=== PATIENT | female | born 1950 | race Caucasian/White ===

== ENCOUNTER 2016-03-19 10:10 | Inpatient (IN) | payer OTHER, MEDICARE ==
[~2016-03-19] VITALS: Ht 170.2 cm; Wt 57.2 kg
[2016-03-19] MEDS ORDERED: IV NS 0.9% 1,000 ML BAG IV ONE ×2 (11:00→12:00)
[2016-03-19] MEDS ORDERED: IV SET PRIMARY 1 EA INFUS.SET MC ONE (11:09)
[2016-03-19] MEDS ORDERED: IV NS 0.9% 1,000 ML ONE ×2 (11:09→12:16)
[2016-03-19 11:21] LABS: BASOPHILS # (AUTO) 1.4 /CMM (0.0-0.2); BASOPHILS % (AUTO) 4.9 % (0.0-2.0); DIFF TOTAL % 100 %; HEMATOCRIT 50 % (33-45); HEMOGLOBIN 16.2 g/dL (11.5-14.8); LYMPHOCYTES # (AUTO) 1.1 /CMM (0.8-4.8); LYMPHOCYTES % (AUTO) 3.8 % (20.0-44.0); MEAN CORPUSCULAR HEMOGLOBIN 28 PG (26.0-33.0); MEAN CORPUSCULAR HGB CONC 33 g/dl (31.0-36.0); MEAN CORPUSCULAR VOLUME 87 fL (82-100); MONOCYTES # (AUTO) 0.9 /CMM (0.1-1.30); NEUTROPHILS # (AUTO) 25.9 /CMM (1.8-8.9); NEUTROPHILS % (AUTO) 88.3 % (43.0-81.0); PLATELET COUNT (AUTO) 749 /CMM (150-450); RED BLOOD CELL COUNT(AUTO) 5.74 MIL/uL (4.0-5.2); WHITE BLOOD COUNT (AUTO) 29.3 K/uL (4.3-11.0)
[2016-03-19 11:30] LABS: ANION GAP 24 (5-14); CALCIUM, SERUM 8.8 mg/dL (8.5-10.1); CARBON DIOXIDE 19 mmol/L (21-32); CHLORIDE 94 mmol/L (98-107); CREATININE 2.6 mg/dL (0.6-1.3); GFR 18 mL/min (>60); GLUCOSE 129 mg/dL (74-106); POTASSIUM 4.5 mmol/L (3.5-5.1); SODIUM SERUM 133 mmol/L (136-145); UREA NITROGEN, BLOOD 38 mg/dL (7-18)
[2016-03-19 11:33] LABS: INR 1.12 (0.87-1.13); PROTHROMBIN TIME 11.8 SECS (9.5-12.7)
[2016-03-19 11:36] LABS: ACETAMINOPHEN 0 ug/ml (10-30); ALANINE AMINOTRANSFERASE 131 U/L (12-78); ALBUMIN 2.9 g/dL (3.4-5.0); ASPARTATE AMINOTRANSFERASE 492 U/L (15-37); BILIRUBIN,DIRECT 0.1 mg/dL (0.0-0.2); BILIRUBIN,TOTAL 0.5 mg/dL (0.2-1.0); INDIRECT BILIRUBIN 0.4 mg/dL (0.0-1.1); SALICYLATE 2.9 mg/dL (2.8-20.0); TOTAL PROTEIN, SERUM 8.9 g/dL (6.4-8.2)
[2016-03-19 11:38] LABS: TROPONIN I 0.292 ng/mL (0.00-0.056)
[2016-03-19 11:46] LABS: THYROID STIMULATING HORMONE 0.168 uIU/mL (0.358-3.74)
[2016-03-19 11:49] LABS: LACTIC ACID 2.1 mmol/L (0.4-2.0)
[2016-03-19 11:58] LABS: BAND % (MANUAL) 13 % (0.0-5.0); LYMPHOCYTES % (MANUAL) 8 % (16-48)
[2016-03-19 11:59] LABS: PLATELET ESTIMATE INCREASED
[2016-03-19] MEDS ORDERED: VANCOMYCIN 1 GM in IV D5W 250 ML IV ONE (12:00)
[2016-03-19] MEDS ORDERED: PIPERACILLIN /TAZOBACTAM 3.375 G in IV D5W 50 ML IV ONE (12:00)
[2016-03-19 12:16] LABS: *LACTIC ACID REFLEX FLAG YES
[2016-03-19] MEDS ORDERED: IV SET PRIMARY PUMP SET 1 EA INFUS.SET MC ONE ×2 (12:17→18:27)
[2016-03-19] MEDS ORDERED: ALPR2TAB2 PO (12:35)
[2016-03-19] MEDS ORDERED: AMIT25TA9 PO (12:35)
[2016-03-19] MEDS ORDERED: METH10TA2 PO (12:35)
[2016-03-19] MEDS ORDERED: OXYC30TA2 PO (12:35)
[2016-03-19] MEDS ORDERED: PRED10TA PO (12:35)
[2016-03-19 14:12] LABS: KETONES,URINE NEGATIVE (NEGATIVE); LEUKOCYTE ESTERASE ,URINE NEGATIVE (NEGATIVE)
[2016-03-19 14:21] LABS: CREATINE KINASE MB 127.9 ng/mL (0-3.6)
[2016-03-19 14:28] LABS: PHENCYCLIDINE SCREEN,URINE NEGATIVE (NEGATIVE)
[2016-03-19 14:31] LABS: ADD UA MICROSCOPIC YES
[2016-03-19 14:37] LABS: WBC,URINE 0-2 /HPF (0-3)
[2016-03-19 14:38] LABS: ADD URINE CULTURE NO
[2016-03-19 14:47] LABS: CANNABINOID, URINE POSITIVE (NEGATIVE)
[2016-03-19 15:28] VITALS: BP 139/85
[2016-03-19 16:00] VITALS: BP 139/85
[2016-03-19] MEDS ORDERED: IV NS 0.9% 1,000 ML IV PRN ×2 (17:24→18:00)
[2016-03-19] MEDS ORDERED: MAG HYDROX/AL HYDROX/SIMETH 30 ML UDC PO PRN (17:30)
[2016-03-19] MEDS ORDERED: ONDANSETRON HCL/PF 4 MG/2 ML VIAL IVP PRN (17:30)
[2016-03-19] MEDS ORDERED: ZOLPIDEM TARTRATE 5 MG TABLET PO PRN (17:30)
[2016-03-19] MEDS ORDERED: MAGNESIUM HYDROXIDE 30 ML UDC PO PRN (17:30)
[2016-03-19] MEDS ORDERED: Z GUARD REMEDY 2 OZ OINT TP PRN (17:30)
[2016-03-19] MEDS ORDERED: ACETAMINOPHEN 325 MG TABLET PO PRN (17:30)
[2016-03-19] MEDS ORDERED: PIPERACILLIN /TAZOBACTAM 3.375 G in IV D5W 50 ML IV SCH (18:00)
[2016-03-19] MEDS: oxyCODONE IR immediate release 5 MG CAPSULE PO PRN (18:18)
[2016-03-19] MEDS: ASPIRIN 81 MG TAB.CHEW PO SCH (18:22)
[2016-03-19] MEDS: ENOXAPARIN SODIUM 40 MG/0.4 ML DISP.SYRIN SQ SCH (18:22)
[2016-03-19] MEDS: ALPRAZOLAM 1 MG TABLET PO PRN (18:22)
[2016-03-19 19:23] LABS: TROPONIN I 0.278 ng/mL (0.00-0.056)
[2016-03-19] MEDS ORDERED: SECONDARY IV SET 1 EA INFUS.SET MC ONE (19:31)
[2016-03-19 19:40] LABS: LACTIC ACID 1.5 mmol/L (0.4-2.0)
[2016-03-19] MEDS: PIPERACILLIN /TAZOBACTAM 2.25 G in IV D5W 50 ML IV SCH (19:44)
[2016-03-19] MEDS: IV NS 0.9% 1,000 ML IV PRN (19:45)
[2016-03-19 20:00] VITALS: BP 140/77
[2016-03-20] VITALS (7 sets, daily range): BP systolic 120–149; BP diastolic 68–84
[2016-03-20] MEDS: PIPERACILLIN /TAZOBACTAM 2.25 G in IV D5W 50 ML IV SCH ×5 (01:06→23:36)
[2016-03-20] MEDS: IV NS 0.9% 1,000 ML IV PRN ×3 (01:06→17:48)
[2016-03-20] MEDS ORDERED: LORAZEPAM INJ 2 MG/ML VIAL ONE (03:13)
[2016-03-20] MEDS: LORAZEPAM INJ 2 MG/ML VIAL IV PRN (03:18)
[2016-03-20 07:17] LABS: CALCIUM, SERUM 7.3 mg/dL (8.5-10.1); CREATININE 2.4 mg/dL (0.6-1.3); POTASSIUM 3.6 mmol/L (3.5-5.1)
[2016-03-20] MEDS: PANTOPRAZOLE 40 MG TABLET.DR PO SCH (07:30)
[2016-03-20 07:37] LABS: BASOPHILS % (AUTO) 0.1 % (0.0-2.0); DIFF TOTAL % 100 %; EOSINOPHILS % (AUTO) 0.2 % (0.0-6.0); HEMATOCRIT 33 % (33-45); HEMOGLOBIN 10.8 g/dL (11.5-14.8); LYMPHOCYTES # (AUTO) 1.2 /CMM (0.8-4.8); LYMPHOCYTES % (AUTO) 9.4 % (20.0-44.0); MEAN CORPUSCULAR HEMOGLOBIN 28 PG (26.0-33.0); MEAN CORPUSCULAR HGB CONC 33 g/dl (31.0-36.0); MEAN CORPUSCULAR VOLUME 86 fL (82-100); MONOCYTES # (AUTO) 0.5 /CMM (0.1-1.30); MONOCYTES % (AUTO) 4.3 % (2.0-12.0); NEUTROPHILS # (AUTO) 10.5 /CMM (1.8-8.9); PLATELET COUNT (AUTO) 513 /CMM (150-450); RED BLOOD CELL COUNT(AUTO) 3.79 MIL/uL (4.0-5.2); WHITE BLOOD COUNT (AUTO) 12.2 K/uL (4.3-11.0)
[2016-03-20] MEDS: CYCLOBENZAPRINE 10 MG TABLET PO SCH ×2 (08:34→17:48)
[2016-03-20] MEDS: ASPIRIN 81 MG TAB.CHEW PO SCH (08:34)
[2016-03-20 08:52] LABS: CREATINE KINASE MB 35.7 ng/mL (0-3.6)
[2016-03-20] MEDS: CARVEDILOL 3.125 MG TABLET PO SCH ×2 (12:30→22:09)
[2016-03-20 14:04] LABS: RHEUMATOID FACTOR SCREEN POSITIVE (NEG)
[2016-03-20 14:25] LABS: CHOLESTEROL 179 mg/dL (<200); HDL CHOLESTEROL 20 mg/dL (40-60); LDL 129 mg/dL (0-99); TRIGLYCERIDES 140 mg/dL (30-150)
[2016-03-20 19:17] LABS: IRON, SERUM 19 ug/dl (50-175); PERCENT SATURATION 13 % (14-33); TOTAL IRON BINDING CAPACITY 151 ug/dl (250-450)
[2016-03-20] MEDS: AMITRIPTYLINE HCL 25 MG TABLET PO SCH (22:07)
[2016-03-20] MEDS: ENOXAPARIN SODIUM 40 MG/0.4 ML DISP.SYRIN SQ SCH (22:08)
[2016-03-20] MEDS: ALPRAZOLAM 1 MG TABLET PO PRN (23:36)
[2016-03-21] VITALS (7 sets, daily range): BP systolic 145–173; BP diastolic 74–82
[2016-03-21] MEDS: IV NS 0.9% 1,000 ML IV PRN ×2 (01:14→17:20)
[2016-03-21] MEDS: LORAZEPAM INJ 2 MG/ML VIAL IV PRN (04:12)
[2016-03-21] MEDS: PIPERACILLIN /TAZOBACTAM 2.25 G in IV D5W 50 ML IV SCH ×3 (05:14→17:19)
[2016-03-21 06:03] LABS: BASOPHILS # (AUTO) 0.1 /CMM (0.0-0.2); BASOPHILS % (AUTO) 0.5 % (0.0-2.0); DIFF TOTAL % 100 %; EOSINOPHILS % (AUTO) 0.3 % (0.0-6.0); HEMATOCRIT 31 % (33-45); HEMOGLOBIN 10.3 g/dL (11.5-14.8); LYMPHOCYTES # (AUTO) 1.2 /CMM (0.8-4.8); LYMPHOCYTES % (AUTO) 11.9 % (20.0-44.0); MEAN CORPUSCULAR HEMOGLOBIN 28 PG (26.0-33.0); MEAN CORPUSCULAR HGB CONC 33 g/dl (31.0-36.0); MEAN CORPUSCULAR VOLUME 85 fL (82-100); MONOCYTES # (AUTO) 0.3 /CMM (0.1-1.30); MONOCYTES % (AUTO) 3.1 % (2.0-12.0); NEUTROPHILS # (AUTO) 8.4 /CMM (1.8-8.9); NEUTROPHILS % (AUTO) 84.2 % (43.0-81.0); PLATELET COUNT (AUTO) 495 /CMM (150-450); RED BLOOD CELL COUNT(AUTO) 3.66 MIL/uL (4.0-5.2); WHITE BLOOD COUNT (AUTO) 9.9 K/uL (4.3-11.0)
[2016-03-21 06:21] LABS: PHOSPHORUS 3.2 mg/dL (2.5-4.9)
[2016-03-21 06:49] LABS: RETICULOCYTE COUNT 0.4 % (0.6-2.5)
[2016-03-21 09:55] LABS: CREATINE KINASE MB 17.3 ng/mL (0-3.6)
[2016-03-21] MEDS: PANTOPRAZOLE 40 MG TABLET.DR PO SCH (09:57)
[2016-03-21] MEDS: CARVEDILOL 3.125 MG TABLET PO SCH ×2 (09:58→20:49)
[2016-03-21] MEDS: ASPIRIN 81 MG TAB.CHEW PO SCH (09:58)
[2016-03-21] MEDS: CYCLOBENZAPRINE 10 MG TABLET PO SCH ×2 (09:58→16:25)
[2016-03-21] MEDS ORDERED: QUETIAPINE FUMARATE 25 MG TABLET PO ONE (13:30)
[2016-03-21] MEDS ORDERED: IV SET PRIMARY PUMP SET 1 EA INFUS.SET MC ONE (14:41)
[2016-03-21 14:45] LABS: ALBUMIN 2.1 g/dL (3.4-5.0); BILIRUBIN,TOTAL 0.4 mg/dL (0.2-1.0); TOTAL PROTEIN, SERUM 6.2 g/dL (6.4-8.2)
[2016-03-21 14:46] LABS: TROPONIN I 0.111 ng/mL (0.00-0.056)
[2016-03-21] MEDS: SOD FERRIC GLUC 125 MG in IV NS 0.9% 100 ML IV SCH (15:41)
[2016-03-21 17:08] LABS: *ANAANTI-SCLERODERMA-70 AB <0.2 AI (0.0-0.9)
[2016-03-21] MEDS: ENOXAPARIN SODIUM 40 MG/0.4 ML DISP.SYRIN SQ SCH (20:51)
[2016-03-21] MEDS: oxyCODONE IR immediate release 5 MG CAPSULE PO PRN (20:56)
[2016-03-21] MEDS: AMITRIPTYLINE HCL 25 MG TABLET PO SCH (20:57)
[2016-03-22] VITALS: BP 173/74
[2016-03-22] MEDS: PIPERACILLIN /TAZOBACTAM 2.25 G in IV D5W 50 ML IV SCH ×5 (00:49→23:48)
[2016-03-22] MEDS: oxyCODONE IR immediate release 5 MG CAPSULE PO PRN ×3 (03:55→20:00)
[2016-03-22 04:00] VITALS: BP 148/67
[2016-03-22 07:00] LABS: BASOPHILS % (AUTO) 0.2 % (0.0-2.0); DIFF TOTAL % 100 %; EOSINOPHILS # (AUTO) 0.1 /CMM (0.0-0.7); EOSINOPHILS % (AUTO) 0.7 % (0.0-6.0); HEMATOCRIT 33 % (33-45); HEMOGLOBIN 10.6 g/dL (11.5-14.8); LYMPHOCYTES # (AUTO) 1.5 /CMM (0.8-4.8); LYMPHOCYTES % (AUTO) 16.4 % (20.0-44.0); MEAN CORPUSCULAR HEMOGLOBIN 28 PG (26.0-33.0); MEAN CORPUSCULAR HGB CONC 33 g/dl (31.0-36.0); MEAN CORPUSCULAR VOLUME 85 fL (82-100); MONOCYTES # (AUTO) 0.5 /CMM (0.1-1.30); MONOCYTES % (AUTO) 5.1 % (2.0-12.0); NEUTROPHILS # (AUTO) 7.3 /CMM (1.8-8.9); NEUTROPHILS % (AUTO) 77.6 % (43.0-81.0); PLATELET COUNT (AUTO) 549 /CMM (150-450); RED BLOOD CELL COUNT(AUTO) 3.84 MIL/uL (4.0-5.2); WHITE BLOOD COUNT (AUTO) 9.4 K/uL (4.3-11.0)
[2016-03-22 07:18] LABS: ALBUMIN 2.2 g/dL (3.4-5.0); BILIRUBIN,TOTAL 0.3 mg/dL (0.2-1.0); CREATININE 1.4 mg/dL (0.6-1.3); TOTAL PROTEIN, SERUM 6.4 g/dL (6.4-8.2)
[2016-03-22] MEDS: PANTOPRAZOLE 40 MG TABLET.DR PO SCH ×2 (07:30→08:23)
[2016-03-22 07:38] LABS: POTASSIUM 2.4 mmol/L (3.5-5.1)
[2016-03-22 08:00] VITALS: BP 113/74
[2016-03-22 08:06] VITALS: BP 113/74
[2016-03-22 08:12] LABS: CREATINE KINASE MB 5.2 ng/mL (0-3.6)
[2016-03-22] MEDS: CYCLOBENZAPRINE 10 MG TABLET PO SCH ×3 (08:23→17:00)
[2016-03-22] MEDS: ASPIRIN 81 MG TAB.CHEW PO SCH ×2 (08:23→08:26)
[2016-03-22] MEDS: CARVEDILOL 3.125 MG TABLET PO SCH ×3 (08:23→20:16)
[2016-03-22] MEDS ORDERED: POTASSIUM CHLORIDE 20 MEQ TAB.PRT.SR PO ONE ×2 (09:00→14:30)
[2016-03-22] MEDS: POTASSIUM CL. PREMIX PERIPHER. 50 ML IV SCH ×4 (09:17→12:58)
[2016-03-22] MEDS: HYDROCODONE/APAP 5/325MG 1 EACH TABLET PO PRN (10:24)
[2016-03-22] MEDS: LORAZEPAM INJ 2 MG/ML VIAL IV PRN (10:25)
[2016-03-22] MEDS ORDERED: IV SET PRIMARY PUMP SET 1 EA INFUS.SET MC ONE ×2 (11:04→11:52)
[2016-03-22] MEDS ORDERED: SECONDARY IV SET 1 EA INFUS.SET MC ONE ×2 (11:04→14:12)
[2016-03-22] MEDS ORDERED: IV NS 0.9% 250 ML IV ONE (11:05)
[2016-03-22] MEDS: Magnesium 1GM/D5W 100ML PREMIX 100 ML IV SCH ×2 (11:55→12:58)
[2016-03-22] MEDS ORDERED: IV D5/0.45 NACL 0 ML IV ONE (12:03)
[2016-03-22] MEDS: Potassium Chloride 40 MEQ in IV D5/0.45 NACL 1,000 ML IV PRN (12:35)
[2016-03-22] MEDS ORDERED: POTASSIUM CHLORIDE 20 MEQ TAB.PRT.SR PO SCH (14:00)
[2016-03-22] MEDS: SOD FERRIC GLUC 125 MG in IV NS 0.9% 100 ML IV SCH (14:15)
[2016-03-22 16:00] VITALS: BP 137/86
[2016-03-22 20:00] VITALS: BP 131/83
[2016-03-22] MEDS: ENOXAPARIN SODIUM 40 MG/0.4 ML DISP.SYRIN SQ SCH (20:15)
[2016-03-22] MEDS: AMITRIPTYLINE HCL 25 MG TABLET PO SCH (20:16)
[2016-03-23] MEDS: oxyCODONE IR immediate release 5 MG CAPSULE PO PRN ×5 (00:09→19:29)
[2016-03-23] MEDS: HYDROCODONE/APAP 5/325MG 1 EACH TABLET PO PRN ×3 (03:00→23:14)
[2016-03-23] MEDS: ALPRAZOLAM 1 MG TABLET PO PRN ×3 (03:05→21:05)
[2016-03-23 04:00] VITALS: BP 150/75
[2016-03-23] MEDS: PIPERACILLIN /TAZOBACTAM 2.25 G in IV D5W 50 ML IV SCH ×5 (05:09→23:47)
[2016-03-23 07:14] LABS: BASOPHILS % (AUTO) 0.5 % (0.0-2.0); DIFF TOTAL % 100 %; EOSINOPHILS # (AUTO) 0.2 /CMM (0.0-0.7); HEMATOCRIT 34 % (33-45); HEMOGLOBIN 11.1 g/dL (11.5-14.8); LYMPHOCYTES # (AUTO) 1.6 /CMM (0.8-4.8); LYMPHOCYTES % (AUTO) 17.9 % (20.0-44.0); MEAN CORPUSCULAR HEMOGLOBIN 28 PG (26.0-33.0); MEAN CORPUSCULAR HGB CONC 33 g/dl (31.0-36.0); MEAN CORPUSCULAR VOLUME 85 fL (82-100); MONOCYTES # (AUTO) 0.6 /CMM (0.1-1.30); MONOCYTES % (AUTO) 6.4 % (2.0-12.0); NEUTROPHILS # (AUTO) 6.4 /CMM (1.8-8.9); NEUTROPHILS % (AUTO) 73.2 % (43.0-81.0); PLATELET COUNT (AUTO) 502 /CMM (150-450); RED BLOOD CELL COUNT(AUTO) 3.99 MIL/uL (4.0-5.2); WHITE BLOOD COUNT (AUTO) 8.8 K/uL (4.3-11.0)
[2016-03-23 07:33] LABS: CALCIUM, SERUM 8.2 mg/dL (8.5-10.1); CREATININE 1.2 mg/dL (0.6-1.3); POTASSIUM 3.5 mmol/L (3.5-5.1)
[2016-03-23 08:00] VITALS: BP 151/78
[2016-03-23 08:07] LABS: CREATINE KINASE MB 2.3 ng/mL (0-3.6)
[2016-03-23] MEDS: ASPIRIN 81 MG TAB.CHEW PO SCH (08:48)
[2016-03-23] MEDS: Potassium Chloride 40 MEQ in IV D5/0.45 NACL 1,000 ML IV PRN (08:48)
[2016-03-23] MEDS: PANTOPRAZOLE 40 MG TABLET.DR PO SCH (08:48)
[2016-03-23] MEDS: CARVEDILOL 3.125 MG TABLET PO SCH ×2 (08:49→21:06)
[2016-03-23] MEDS: CYCLOBENZAPRINE 10 MG TABLET PO SCH ×2 (08:49→17:25)
[2016-03-23] MEDS: SOD FERRIC GLUC 125 MG in IV NS 0.9% 100 ML IV SCH (13:42)
[2016-03-23] MEDS ORDERED: SOD FERRIC GLUC 125 MG in IV NS 0.9% 100 ML IV SCH (14:00)
[2016-03-23 16:00] VITALS: BP 120/70
[2016-03-23 20:00] VITALS: BP 124/79
[2016-03-23] MEDS: AMITRIPTYLINE HCL 25 MG TABLET PO SCH (21:05)
[2016-03-23] MEDS: ENOXAPARIN SODIUM 40 MG/0.4 ML DISP.SYRIN SQ SCH (21:06)
[2016-03-24] MEDS: oxyCODONE IR immediate release 5 MG CAPSULE PO PRN ×4 (01:36→15:54)
[2016-03-24] MEDS: HYDROCODONE/APAP 5/325MG 1 EACH TABLET PO PRN ×2 (03:17→08:45)
[2016-03-24 04:00] VITALS: BP 132/69
[2016-03-24 04:08] VITALS: BP 132/69
[2016-03-24] MEDS: PIPERACILLIN /TAZOBACTAM 2.25 G in IV D5W 50 ML IV SCH ×2 (05:53→12:13)
[2016-03-24 06:28] LABS: BASOPHILS % (AUTO) 0.5 % (0.0-2.0); DIFF TOTAL % 100 %; EOSINOPHILS # (AUTO) 0.2 /CMM (0.0-0.7); EOSINOPHILS % (AUTO) 2.2 % (0.0-6.0); HEMATOCRIT 31 % (33-45); HEMOGLOBIN 10.2 g/dL (11.5-14.8); LYMPHOCYTES # (AUTO) 1.9 /CMM (0.8-4.8); LYMPHOCYTES % (AUTO) 22.5 % (20.0-44.0); MEAN CORPUSCULAR HEMOGLOBIN 28 PG (26.0-33.0); MEAN CORPUSCULAR HGB CONC 33 g/dl (31.0-36.0); MEAN CORPUSCULAR VOLUME 85 fL (82-100); MONOCYTES # (AUTO) 0.5 /CMM (0.1-1.30); MONOCYTES % (AUTO) 6.3 % (2.0-12.0); NEUTROPHILS # (AUTO) 5.8 /CMM (1.8-8.9); NEUTROPHILS % (AUTO) 68.5 % (43.0-81.0); PLATELET COUNT (AUTO) 470 /CMM (150-450); WHITE BLOOD COUNT (AUTO) 8.5 K/uL (4.3-11.0)
[2016-03-24 06:37] LABS: ALBUMIN 1.9 g/dL (3.4-5.0); BILIRUBIN,TOTAL 0.3 mg/dL (0.2-1.0); CALCIUM, SERUM 8.1 mg/dL (8.5-10.1); CREATININE 1.1 mg/dL (0.6-1.3); POTASSIUM 3.7 mmol/L (3.5-5.1); TOTAL PROTEIN, SERUM 5.9 g/dL (6.4-8.2)
[2016-03-24 07:22] LABS: CREATINE KINASE MB 1.7 ng/mL (0-3.6)
[2016-03-24 08:00] VITALS: BP 139/70
[2016-03-24] MEDS: PANTOPRAZOLE 40 MG TABLET.DR PO SCH (08:39)
[2016-03-24] MEDS: ASPIRIN 81 MG TAB.CHEW PO SCH (08:39)
[2016-03-24 08:40] VITALS: BP 139/70
[2016-03-24] MEDS: CYCLOBENZAPRINE 10 MG TABLET PO SCH (08:40)
[2016-03-24] MEDS: CARVEDILOL 3.125 MG TABLET PO SCH (08:40)
[2016-03-24] MEDS: ALPRAZOLAM 1 MG TABLET PO PRN (09:22)
[2016-03-24] MEDS ORDERED: DICLOFENAC SODIUM 25 MG TABLET.DR PO ONE (11:00)
[2016-03-24] MEDS ORDERED: ALPRAZOLAM 1 MG TABLET PO PRN (11:30)
[2016-03-24] MEDS ORDERED: IV SET PRIMARY PUMP SET 1 EA INFUS.SET MC ONE (13:26)
[2016-03-24] MEDS: Potassium Chloride 40 MEQ in IV D5/0.45 NACL 1,000 ML IV PRN (13:27)
[2016-03-24] MEDS: SOD FERRIC GLUC 125 MG in IV NS 0.9% 100 ML IV SCH (13:35)
== END 2016-03-24 16:13 | disposition left against medical advice (07) | DRG 52 ==
LOC: ER 10:13 → MEDSG1 12:18 → TELE-TD 15:47 → TELE1 03-21 14:44 → MEDSG1 03-21 20:32
PROVIDERS: ADMIT Internal Medicine; ATTEND Internal Medicine
DX: G93.41 Metabolic encephalopathy (principal); I21.4 Non-ST elevation (NSTEMI) myocardial infarction; N17.0 Acute kidney failure with tubular necrosis; K81.0 Acute cholecystitis; F11.20 Opioid dependence, uncomplicated; E87.2 Acidosis; M62.82 Rhabdomyolysis; Z86.19 Personal history of other infectious and parasitic diseases; M54.5 Low back pain; G89.29 Other chronic pain; M19.90 Unspecified osteoarthritis, unspecified site; F41.9 Anxiety disorder, unspecified; G62.9 Polyneuropathy, unspecified; I73.9 Peripheral vascular disease, unspecified; D47.3 Essential (hemorrhagic) thrombocythemia; D75.1 Secondary polycythemia; F32.9 Major depressive disorder, single episode, unspecified; E87.6 Hypokalemia; D64.9 Anemia, unspecified; E61.1 Iron deficiency; K82.8 Other specified diseases of gallbladder; F19.10 Other psychoactive substance abuse, uncomplicated
CPT/HCPCS: 36415; 70450-TC; 71010-TC; 76700-TC; 80048-TC; 80053-TC; 80061-TC; 80076-TC; 80305; 81000-TC; 82140-TC; 82272-TC; 82550-TC; 82553-TC; 82728-TC; 82746; 83540-TC; 83605-TC; 83735-TC; 84100-TC; 84155; 84165; 84439-TC; 84443-TC; 84480; 84484-TC; 85025-TC; 85045-TC; 85652-TC; 85730-TC; 86140-TC; 86225; 86235; 86431-TC; 87040-TC; 87081-TC; 87086-TC; 93307-TC; 93925-TC; 93971-TC; 97001-TC; 97110-TC; 97112-TC; 97530-TC; A4606; C1751; G6038-TC; G6039-TC; G6040-TC; J1650; J2060; J2543; J2916; J3370; J3475; J3480; J3490; J7030; J7050; J7060; Z7610